=== PATIENT | male | born 1960 | race Caucasian/White ===

== ENCOUNTER 2022-11-14 05:35 | Day surgery (SDC) | payer OTHER ==
[~2022-11-14 05:35] MED LIST: Sodium Chloride 0.9% 10 ML Syringe FLUSH PRN; Sodium Chloride 0.9% 10 ML Syringe FLUSH SCH
[2022-11-14] MEDS ORDERED: Dextrose 5%-0.45% NaCl 1,000 ML IV SCH (06:00)
[2022-11-14] MEDS ORDERED: Midazolam 1 MG/ML 2 ML SDV ONE (06:21)
[2022-11-14] MEDS ORDERED: fentaNYL 100 MCG/2 ML SDV ONE (06:22)
[2022-11-14] MEDS ORDERED: fentaNYL 100 MCG/2 ML SDV IV ONE ×2 (06:32→06:33)
[2022-11-14] MEDS ORDERED: Midazolam 1 MG/ML 2 ML SDV IV ONE ×5 (06:33→06:39)
== END 2022-11-14 08:15 | disposition home or self-care (01) ==
LOC: DL.ENDO 05:35
PROVIDERS: ATTEND Internal Medicine Gastroenterology
DX: Z12.11 Encounter for screening for malignant neoplasm of colon (principal); E66.09 Other obesity due to excess calories; I10 Essential (primary) hypertension; E78.5 Hyperlipidemia, unspecified; Z98.890 Other specified postprocedural states; Z68.31 Body mass index [BMI] 31.0-31.9, adult
CPT/HCPCS: 45378; J2250; J3010; J7042